=== PATIENT | female | born 1975 | race Caucasian/White ===

== ENCOUNTER → 2016-05-15 | Outpatient (CLI) | payer OTHER ==
--- NOTE | 2016-05-15 09:01 | REP ---
CT abdomen and pelvis without contrast 05/15/2016 Indication: Flank pain, history of urinary calculi Comparison: CT abdomen /pelvis 09/01/2013 performed without contrast. Findings: Small amount of atelectatic changes are present within the right middle lobe. Liver, spleen, pancreas, gallbladder, adrenal glands are normal. Kidneys are without hydronephrosis or obstructing ureteral calculi bilaterally. There are no visualized Nephro calculi bilaterally. The stomach and small bowel are within normal limits. Terminal ileum and appendix are normal, aorta is of normal course and caliber. There are no pathologically enlarged retroperitoneal nodes. Bilateral tubal occlusion wires are visualized. There is mild asymmetry in size of the ovaries, right greater than left, and small right ovarian follicles are suggested. There is moderate diffuse retained stool within the colon. There is no free air or ascites. There is an umbilical hernia 2 cm transverse dimension containing omental fat only. Impression No hydronephrosis or obstructing ureteral calculi bilaterally. No visualized Nephro calculi Unremarkable appendix 2 cm umbilical hernia containing omental fat only Mild asymmetry in size of the ovaries right greater than left. Right ovarian follicles are suggested. If there are symptoms referable to the right adnexal region, pelvic ultrasound may be warranted. Signed by Prerna Hubbard MD 05/15/2016 08:53 A
== END | disposition home or self-care (01) ==
LOC: M RAD 07:25
PROVIDERS: ATTEND Nurse Practitioner Women's Health
DX: R10.9 Unspecified abdominal pain (principal); Z87.442 Personal history of urinary calculi; K42.9 Umbilical hernia without obstruction or gangrene

== ENCOUNTER → 2016-06-29 | Outpatient (CLI) | payer OTHER ==
[~2016-06-29] MED LIST: CELE40TA PO; LIPI20TA PO; LISI10TA4 PO
[2016-06-29 17:36] LABS: ANION GAP 8 MEQ/L (8-16); BLOOD UREA NITROGEN 14 MG/DL (7-18); CALCIUM LEVEL 8.9 MG/DL (8.5-10.1); CARBON DIOXIDE LEVEL 26 MEQ/L (21-32); CHLORIDE LEVEL 106 MEQ/L (98-107); GLOMERULAR FILTRATION RATE > 60.0 (>60); GLUCOSE, FASTING 113 MG/DL (70-105); POTASSIUM SERUM 4.3 MEQ/L (3.5-5.1); SODIUM LEVEL 140 MEQ/L (136-145)
[2016-06-29 17:54] LABS: MEAN CORPUSCULAR HEMOGLOBIN 29.2 pg (27.0-33.0); MEAN CORPUSCULAR HGB CONC 33.2 g/dl (32.0-36.5); MEAN CORPUSCULAR VOLUME 87.8 fl (80.0-96.0); RED CELL DISTRIBUTION WIDTH 13.5 % (11.5-14.5); WHITE BLOOD COUNT 9.4 K/mm3 (4.0-10.0)
[2016-06-29 18:10] LABS: CALCIUM OXALATE CRYSTALS MODERATE
== END ==
LOC: M SMT 13:15
PROVIDERS: ATTEND Specialist
DX: Z01.812 Encounter for preprocedural laboratory examination (principal); R32 Unspecified urinary incontinence

== ENCOUNTER → 2016-07-04 | Outpatient (CLI) | payer OTHER ==
[~2016-07-04] MED LIST changes: +BACT800T5 PO; +OXYC1TAB23 PO
--- NOTE | 2016-07-04 17:05 | ECGEPIP ---
Stationary ECG Study [facility] Test Date: 2016-07-04 Pat Name: JULY PATI Department: Room: - Gender: F Motorboat Mechanic Inboard/Outboard: SAM : 1975 Requested By: Marino Jnag Order Number: [id number] Reading MD: Maribel Chase Measurements Intervals [place] Rate: 79 P: -8 CO: 180 QRS: 6 QRSD: 101 T: 26 QT: 362 QTc: 415 Interpretive Statements SINUS RHYTHM WITH SINUS ARRHYTHMIA WNL NO PRIOR Electronically Signed On 07-04-2016 17:05:34 EST by Maribel Chase
== END ==
LOC: M EKG 11:11
PROVIDERS: ATTEND Anesthesiology
DX: Z01.818 Encounter for other preprocedural examination (principal); I10 Essential (primary) hypertension; I49.9 Cardiac arrhythmia, unspecified

== ENCOUNTER 2016-07-05 09:28 | Day surgery (SDC) | payer OTHER ==
[~2016-07-05] VITALS: Ht 162.6 cm; Wt 88.5 kg
[~2016-07-05 09:28] MED LIST changes: -BACT800T5 PO; -OXYC1TAB23 PO
[2016-07-05] MEDS ORDERED: LR 1,000 ML IV SCH ×2 (10:00→14:00)
[2016-07-05] MEDS ORDERED: ceFAZolin 2 GM/D5W 50 ML IV BAG (J0690) As Ordered ONE (10:04)
[2016-07-05] MEDS ORDERED: MIDAZOLAM INJ 2 MG/2 ML VIAL (J2250) As Ordered ONE ×2 (10:05→12:33)
[2016-07-05] MEDS ORDERED: ONDANSETRON 4MG/2ML VIAL (J2405) As Ordered ONE (10:05)
[2016-07-05] MEDS ORDERED: dexameTHASONE 4 MG/ML 1ML VIAL (J1100) As Ordered ONE (10:05)
[2016-07-05] MEDS ORDERED: PROPOFOL 200 MG/20 ML VIAL As Ordered ONE ×2 (10:05→13:00)
[2016-07-05] MEDS ORDERED: ROCURONIUM BROMIDE 50 MG/5 ML VIAL As Ordered ONE (10:05)
[2016-07-05] MEDS ORDERED: LIDOCAINE 2% INJ 100 MG/5 ML SDV (FOR ANES.) As Ordered ONE (10:05)
[2016-07-05] MEDS ORDERED: KETOROLAC 60 MG/2 ML VIAL (J1885) As Ordered ONE (10:05)
[2016-07-05] MEDS ORDERED: fentaNYL 250 MCG/5 ML INJECTION (J3010) As Ordered ONE (10:05)
[2016-07-05] MEDS ORDERED: GLYCOPYRROLATE INJ 0.2 MG/ML 2 ML VIAL As Ordered ONE (10:05)
[2016-07-05] MEDS ORDERED: BUPIVACAINE/EPIN 0.25% 30 ML VIAL As Ordered ONE (11:49)
[2016-07-05] MEDS ORDERED: METHYLENE BLUE 0.5% (5MG/ML) 10 ML AMP (PROVAYBLUE)(Q9968 PER 1MG) As Ordered ONE (11:49)
[2016-07-05] MEDS ORDERED: BACITRACIN PWD 50,000 UNITS VIAL As Ordered ONE (11:51)
[2016-07-05] MEDS ORDERED: CHLOROPROCAINE PRES. FREE 3% INJ 20 ML VIAL (J2400) As Ordered ONE (12:10)
[2016-07-05] MEDS ORDERED: PHENYLephrine HCL 500 MCG/5 ML (100MCG/ML) SYRINGE (J2370) As Ordered ONE (12:53)
[2016-07-05] MEDS ORDERED: OXYC1TAB23 PO (13:24)
[2016-07-05] MEDS ORDERED: BACT800T5 PO (13:29)
[2016-07-05] MEDS ORDERED: METOCLOPRAMIDE INJ 10MG/2ML VIAL (J2765) IV PRN (14:00)
[2016-07-05] MEDS ORDERED: PERCOCET 5MG/325MG TAB PO PRN (14:00)
[2016-07-05] MEDS ORDERED: fentaNYL 100 MCG/2 ML INJECTION (J3010) IV PRN (14:00)
[2016-07-05] MEDS ORDERED: ONDANSETRON 4MG/2ML VIAL (J2405) IV PRN (14:00)
[2016-07-05 15:00] VITALS: BP 125/74
--- NOTE | 2016-07-06 10:14 | RO ---
DATE OF PROCEDURE: 07/05/2016 PREOPERATIVE DIAGNOSIS: Mixed urinary incontinence. POSTOPERATIVE DIAGNOSIS: Mixed urinary incontinence. PROCEDURE: Mid urethral sling with the use of a tension-free vaginal tape-obturator (TVTO) made by [employer] and cystoscopy. SURGEON: Dr. Anusha Fernandez CONTAINERS SALES REPRESENTATIVE: ANESTHESIA: Spinal with IV sedation. MEDICATIONS: Ancef 2 grams preoperatively. DRAIN: 18-Dominican Olsen catheter. COMPLICATIONS: None. ESTIMATED BLOOD LOSS: 75 mL. INDICATIONS FOR PROCEDURE: The patient is a 40-year-old female with a history of mixed urinary incontinence bothered mostly by the stress component. She did leak urine with walking, but mostly leaked with coughing, sneezing, or jumping ropes. She needed to wear pads whenever she was working out. She had done Kegel exercises for years, but still had the issue. After discussing all different options, alternatives, risks, and benefits, including conservative therapy with physical therapy, the patient decided to proceed with surgical management. The risks discussed included, but was not limited to, the risks of general anesthesia, reactions to medication, bleeding, infection, urethral injury, postoperative urinary retention, continued incontinence, postoperative overactive bladder, and extrusion and/or erosion of the mesh material. PROCEDURE: The patient was brought into the operating room. Sequential compression devices and thromboembolic deterrent (ZOILA) stockings were in place. Preoperative antibiotics had been given. The spinal anesthesia was given as was IV sedation. The patient was then placed in the lithotomy position and careful attention was paid that her pressure points were well padded and protected. Next, she was prepped and draped in the usual fashion. An 18-Dominican Olsen catheter was placed and left to gravity drainage. Next, a 1 cm incision was made 1 cm underneath the urethral meatus and Metzenbaum scissors were utilized going up towards the obturator region. Next, the TVTO metal passing device was placed in this space and the TVTO was passed over this out through the obturator region, first on the right hand side and then on the left. Vaginal mucosa was palpated and there was no evidence of sling material. A cystoscopy was performed and both ureteral orifices were seen with excellent efflux of indigo carmine. There was no evidence of sling material in the bladder. What was of interest was a string of what originally appeared to be metallic, but later on was shown just to be bubbles, most likely from lidocaine jelly that was placed on the Olsen catheter. There were no other stones, erythematous patches, lesions or other significant abnormalities within the bladder. At this point, the Olsen catheter was replaced and left to gravity drainage. A 30-Dominican Lavern dilator was placed between the urethra and the mesh material and the transvaginal tape was adjusted to the right tension. The outer plastic portion was removed and the mesh material was cut to the level of skin. Copious antibiotic irrigation was utilized. The vaginal mucosa was closed using an interrupted #3-0 chromic suture. Since the patient had a spinal in place, vaginal packing was placed and the catheter will be left in place until the spinal wears off and then we will remove both the packing and plan a voiding trial.
== END 2016-07-05 15:22 ==
LOC: M SDC 09:28
PROVIDERS: ATTEND Specialist
DX: N39.46 Mixed incontinence (principal); I10 Essential (primary) hypertension; E78.00 Pure hypercholesterolemia, unspecified; J32.9 Chronic sinusitis, unspecified; Z87.891 Personal history of nicotine dependence; Z79.899 Other long term (current) drug therapy
CPT/HCPCS: 57288; C1771; J0690; J1100; J1885; J2250; J2370; J2400; J2405; J3010; Q9968

== ENCOUNTER 2016-11-06 05:49 | Inpatient (IN) | payer OTHER ==
[~2016-11-06] VITALS: Ht 162.6 cm; Wt 88.0 kg
[2016-11-06] VITALS (7 sets, daily range): BP systolic 125–141; BP diastolic 73–85
[~2016-11-06 05:49] MED LIST changes: +BACT800T5 PO; +OXYC1TAB23 PO
[2016-11-06] MEDS ORDERED: cefoTEtan DISODIUM 2 GM in D5W MINI-BAG PLUS 100 ML IV ONE (06:00)
[2016-11-06] MEDS ORDERED: LR 1,000 ML IV ONE (06:15)
[2016-11-06] MEDS ORDERED: LR 1,000 ML IV SCH ×3 (06:15→11:00)
[2016-11-06 06:41] LABS: MEAN CORPUSCULAR HEMOGLOBIN 29.3 pg (27.0-33.0); MEAN CORPUSCULAR HGB CONC 33.7 g/dl (32.0-36.5); RED CELL DISTRIBUTION WIDTH 13.6 % (11.5-14.5); WHITE BLOOD COUNT 8.4 K/mm3 (4.0-10.0)
[2016-11-06 06:48] LABS: CONTROL LINE HCG INT CTR LINE PRESENT
[2016-11-06] MEDS ORDERED: BUPIVACAINE HCL 0.5% 30 ML VIAL As Ordered ONE (07:14)
[2016-11-06] MEDS ORDERED: PROPOFOL 200 MG/20 ML VIAL As Ordered ONE ×2 (07:21→10:02)
[2016-11-06] MEDS ORDERED: LIDOCAINE 2% INJ 100 MG/5 ML SDV (FOR ANES.) As Ordered ONE (07:21)
[2016-11-06] MEDS ORDERED: fentaNYL 250 MCG/5 ML INJECTION (J3010) As Ordered ONE (07:21)
[2016-11-06] MEDS ORDERED: ROCURONIUM BROMIDE 50 MG/5 ML VIAL/SYRINGE As Ordered ONE ×2 (07:21→09:15)
[2016-11-06] MEDS ORDERED: MIDAZOLAM INJ 2 MG/2 ML VIAL (J2250) As Ordered ONE (07:22)
[2016-11-06] MEDS ORDERED: GLYCOPYRROLATE INJ 0.2 MG/ML 2 ML VIAL As Ordered ONE ×2 (08:37→11:43)
[2016-11-06] MEDS ORDERED: KETOROLAC 60 MG/2 ML VIAL (J1885) As Ordered ONE ×2 (09:00→11:43)
[2016-11-06] MEDS ORDERED: ONDANSETRON 4MG/2ML VIAL (J2405) As Ordered ONE ×2 (09:00→11:43)
[2016-11-06] MEDS ORDERED: dexameTHASONE 4 MG/ML 1ML VIAL (J1100) As Ordered ONE ×2 (09:00→11:43)
[2016-11-06] MEDS ORDERED: NEOSTIGMINE 1MG/ML 5 ML SYRINGE (J2710) As Ordered ONE ×2 (09:00→11:43)
[2016-11-06] MEDS ORDERED: HYDROmorphone HCL 2 MG/ML 1ML VIAL (J1170) As Ordered ONE ×2 (09:04→11:44)
[2016-11-06] MEDS ORDERED: ePHEDrine SULFATE 25 MG/5 ML(5MG/ML) SYRINGE As Ordered ONE (09:57)
[2016-11-06] MEDS ORDERED: PROMETHAZINE INJ 25 MG/ML VIAL (J2550) IV PRN (10:30)
[2016-11-06] MEDS ORDERED: PERCOCET 5MG/325MG TAB PO PRN (10:30)
[2016-11-06] MEDS: PERCOCET 5MG/325MG TAB PO PRN ×2 (11:00→22:35)
[2016-11-06] MEDS ORDERED: ONDANSETRON 4MG/2ML VIAL (J2405) IV PRN (11:00)
[2016-11-06] MEDS ORDERED: fentaNYL 100 MCG/2 ML INJECTION (J3010) IV PRN (11:00)
[2016-11-06] MEDS ORDERED: METOCLOPRAMIDE INJ 10MG/2ML VIAL (J2765) As Ordered ONE (11:43)
[2016-11-06] MEDS ORDERED: PHENYLephrine HCL 500 MCG/5 ML (100MCG/ML) SYRINGE (J2370) As Ordered ONE (11:53)
[2016-11-06] MEDS: KETOROLAC 30 MG/ML VIAL (J1885) IV SCH ×2 (15:16→20:28)
[2016-11-06] MEDS ORDERED: ACETAMINOPHEN TAB 650MG DOSE (2X325MG) PO ONE (18:45)
[2016-11-06] MEDS: DOCUSATE SODIUM 100 MG CAP PO SCH (20:28)
--- NOTE | 2016-11-06 21:37 | IPNPDOC ---
Text Note Date of Service The patient was seen on 11/06/16. NOTE NOS Discussed results with her, uncompliacted TLH, bilat slapingectomy. Spoke with pt, very aware NAD, denies any pain. Slight PANIAGUA only. Took some tylenol earlier for this, declines percocet. Eating, walking, using the IS. VSSAF UO adequate, ~200/hr Inc's CDI SCD's on Wants to leave in the AM, feeling very well, will remove her Olsen at 0300 with a DTV by 0700. CBC at 0600. Will reeval in the AM. Sessions MD VICENTE,Luna, I+O VSLuna, I+O Laboratory Tests 11/06/16 06:17 Red Blood Count 4.50, Mean Corpuscular Volume 87.0, Mean Corpuscular Hemoglobin 29.3, Mean Corpuscular Hemoglobin Concent 33.7, Red Cell Distribution Width 13.6 Vital Signs Date Time Temp Pulse Resp B/P (MAP) Pulse Ox O2 Delivery O2 Flow Rate FiO2 11/06/16 20:00 99.3 109 18 135/85 (102) 96 Nasal Cannula 2.0 SESSIONS,GERALDO Marie MD Nov 06, 2016 21:37
[2016-11-07] VITALS: BP 127/70
[2016-11-07] MEDS: KETOROLAC 30 MG/ML VIAL (J1885) IV SCH ×2 (02:02→08:29)
[2016-11-07 04:00] VITALS: BP 126/73
--- NOTE | 2016-11-07 06:58 | IPNPDOC ---
Text Note Date of Service The patient was seen on 11/07/16. NOTE POD1 s/p uncomplicated TLH, bilat salpingectomy. A&O, NAD, denies any pain. PANIAGUA improved. Eating, walking, using the IS. No CP/ LP/SOB. No VB. VSSAF, although at MN had a T 100.6, rpt 1 hr later and since nl UO adequate, Olsen out since 0300, no void yet CTAB RRR BS pos, abd soft, Inc's CDI Ext no CCE, SCD's on Feeling very well, CBC this AM pending. Due to MN slight fever, will watch until tomorrow. Sessions VSLuna, I+O VSLuna I+O Vital Signs Date Time Temp Pulse Resp B/P (MAP) Pulse Ox O2 Delivery O2 Flow Rate FiO2 11/07/16 04:00 98.0 100 18 126/73 (90) 93 Room Air I&O- Last 24 Hours up to 6 AM 11/07/16 06:00 Intake Total 3190 ml Output Total 2950 ml Balance 240 ml SESSIONS,GERALDO Marie MD Nov 07, 2016 06:58
[2016-11-07 07:18] LABS: BASO % 0.2 % (0.0-1.0); EOS # 0.1 K/mm3 (0.0-0.50); EOS % 0.6 % (0.0-3.0); LARGE UNSTAINED CELL # 0.3 K/mm3 (0.0-0.4); LYMPH # 2.5 K/mm3 (1.5-4.5); LYMPH % 13.7 % (24.0-44.0); MEAN CORPUSCULAR HEMOGLOBIN 29.1 pg (27.0-33.0); MEAN CORPUSCULAR HGB CONC 33.3 g/dl (32.0-36.5); MEAN CORPUSCULAR VOLUME 87.4 fl (80.0-96.0); MONO # 0.6 K/mm3 (0.0-0.8); NEUTROPHILS # 12.8 K/mm3 (1.8-7.7); NEUTROPHILS % 79.5 % (36.0-66.0); PLATELET COUNT, AUTOMATED 308 k/mm3 (150-450); RED CELL DISTRIBUTION WIDTH 13.8 % (11.5-14.5); WHITE BLOOD COUNT 16.1 K/mm3 (4.0-10.0)
[2016-11-07 08:00] VITALS: BP 128/78
[2016-11-07] MEDS: DOCUSATE SODIUM 100 MG CAP PO SCH ×2 (08:28→21:46)
[2016-11-07 12:00] VITALS: BP 130/70
[2016-11-07] MEDS: PERCOCET 5MG/325MG TAB PO PRN ×2 (12:48→21:49)
[2016-11-07 16:00] VITALS: BP 137/75
[2016-11-07] MEDS ORDERED: SLF 3 ML SYR IV PRN (16:15)
[2016-11-07] MEDS: IBUPROFEN 800 MG TAB PO SCH (17:03)
[2016-11-07 20:00] VITALS: BP 142/81
[2016-11-07] MEDS: SLF 3 ML SYR IV SCH (21:50)
[2016-11-08] VITALS: BP 146/66
[2016-11-08] MEDS: IBUPROFEN 800 MG TAB PO SCH ×2 (01:04→08:36)
[2016-11-08 04:00] VITALS: BP 129/88
[2016-11-08] MEDS: SLF 3 ML SYR IV SCH (06:00)
--- NOTE | 2016-11-08 07:50 | DS.PDOC ---
Discharge Summary General Date of Admission Nov 06, 2016 at 05:49 Date of Discharge [id number] Discharge Summary PROCEDURES PERFORMED DURING STAY: Total Laparoscopic Hysterectomy, bilateral salpingectomy ADMITTING DIAGNOSIS: 1. Pelvic pain, dyspareunia, abnormal uterine bleeding, possible adenomyosis DISCHARGE DIAGNOSES: 1. [facility]: Admitted for [facility] bilat salp, uncomplicated, see operative dictation. Her postop course was uncomplicated other than a single temp of 100.6 at midnight on the evening of her surgery. This was repeated 1 hour later and it was normal thereafter. Because of this, was kept an extra day to be sure was not developing an infection. DISCHARGE MEDICATIONS: Motrin, Percocet, Colace Physical exam on day of discharge: see progress note LABORATORY DATA: Please see below. ACTIVITY: No lifting >20 lbs for 4-6 weeks. Nothing in vagina for 12 weeks due to the use of electrocautery. No bathing for 1 month. DIET: regular DISPOSITION:stable TIME SPENT ON DISCHARGE: Greater than 15 minutes. Sessions Vital Signs/I&Os Vital Signs Date Time Temp Pulse Resp B/P (MAP) Pulse Ox O2 Delivery O2 Flow Rate FiO2 11/08/16 04:00 99.4 72 20 129/88 (102) 93 Room Air 11/07/16 04:00 I&O- Last 24 Hours up to 6 AM 11/08/16 05:59 Intake Total 1400 ml Output Total 1050 ml Balance 350 ml Discharge Medications Scheduled Atorvastatin Calcium (Lipitor) 20 Mg Tab, 20 MG PO QHS, (Reported) Citalopram Hydrobromide (Celexa) 40 Mg Tab, 20 MG PO QHS, (Reported) Lisinopril (Lisinopril) 10 Mg Tab, 10 MG PO QHS, (Reported) Allergies Coded Allergies: No Known Allergies (Unverified , 11/06/16) SESSIONS,GERALDO Marie MD Nov 08, 2016 07:49
--- NOTE | 2016-11-08 07:53 | IPNPDOC ---
Text Note Date of Service The patient was seen on 11/08/16. NOTE POD2 prog note States feeling well, no complaints. No VB. Pain controlled. Voiding, ambulatory, no N/V/LP/CP/SOB VSSAF CTAB RRR Ext no CCE Inc's CDI CBC yest AM appropr a/p: Doing well. d/c this morning. After explanation last night by evening RN , pt OK and understood there was no indication for abx for a single T >100.4 on the night of surgery. Has remained afebrile since. Very normal to have an elevated WBC count the day after surgery (reactive inflammation). Sessions VS,Luna, I+O VSLuna I+O Vital Signs Date Time Temp Pulse Resp B/P (MAP) Pulse Ox O2 Delivery O2 Flow Rate FiO2 11/08/16 04:00 99.4 72 20 129/88 (102) 93 Room Air 11/07/16 04:00 I&O- Last 24 Hours up to 6 AM 11/08/16 06:00 Intake Total 1440 ml Output Total 1450 ml Balance -10 ml GERALDO SALAZAR MD Nov 08, 2016 07:53
[2016-11-08] MEDS ORDERED: OXYC1TAB23 PO ×2 (08:22)
[2016-11-08] MEDS ORDERED: COLA100C5 PO (08:29)
[2016-11-08] MEDS ORDERED: IBUP-1022 PO (08:29)
[2016-11-08] MEDS: DOCUSATE SODIUM 100 MG CAP PO SCH (08:35)
--- NOTE | 2016-11-08 09:32 | RO ---
DATE OF PROCEDURE: 11/06/2016 PREOPERATIVE DIAGNOSIS: Abnormal uterus on ultrasound, abnormal uterine bleeding, pelvic pain, dyspareunia. POSTOPERATIVE DIAGNOSIS: Abnormal uterus on ultrasound, abnormal uterine bleeding, pelvic pain, dyspareunia. PROCEDURE: Total laparoscopic hysterectomy, bilateral salpingectomy. SURGEON: Joaquin Mccall MD INTERMEDIATE FRAME TENDER: Sharif Degroot MD ANESTHESIA: General endotracheal. ESTIMATED BLOOD LOSS: 50 mL. DRAINS: 500 mL of urine in the Olsen catheter. FLUIDS REPLACED: 1600 mL of Lactated Ringer's. PREOPERATIVE ANTIBIOTICS: The patient received 2 grams of Ancef IV prior to start of the incision. SPECIMENS REMOVED: Cervix, uterus, and fallopian tubes, all attached. INDICATIONS: Patient is a 41-year-old female with significant diagnoses as per the preoperative diagnosis above. Strongly desires hysterectomy to improve her quality of life. Informed consent was obtained approximately two weeks prior to the surgery and on the morning of the surgery there were no changes and the patient desired to proceed. DESCRIPTION OF PROCEDURE: Patient was taken to the operating room with an IV in place, placed in dorsal lithotomy position, after general endotracheal anesthesia was obtained. A preoperative exam under anesthesia was then performed by myself and my cleaner assistant, and the patient was prepped and draped in a normal sterile fashion. Of note, I positioned her legs. While the laparoscopic equipment was being assembled by my cleaner assistant, I placed a speculum in the vagina and a tenaculum on the anterior lip of the cervix. I placed a figure-of-8 suture on the anterior lip of the cervix and then easily placed the VCare uterine manipulator into the uterine cavity, at which point the stay suture ripped free. I then replaced the stay suture with another and this also ripped free. I then cauterized the area to ensure that we did not have an inordinate amount of blood loss that was unknown during the surgery and attempts to place a stay suture were abandoned. I insufflated the VCare uterine manipulator, advanced the mechanism to keep it in place and removed the speculum. My gloves were then changed then a blue towel was wrapped around the uterine manipulator. I turned my attention to the lower abdomen. The patient was dropped to waist level, flattened out parallel to the floor, and the infraumbilical port site was injected with approximately 5 mL of 0.25% Marcaine without epinephrine. A small 5 mm horizontal incision was performed and the trocar was placed under direct visualization to the abdominal cavity. This was done without difficulty and with low flow insufflation of carbon dioxide, we confirmed intra-abdominal placement and then changed to high flow. We then placed her in Trendelenburg, removed the intestines out of the pelvis, and did a thorough examination of the lower and upper abdomen. All seemed normal other than a slightly enlarged uterus with significant erythematous injection on the right posterior cul-de-sac. Both ovaries and fallopian tubes were normal in appearance. We then placed two lower lateral trocars in the exact same manner, however this time it was done under direct visualization using the camera in the infraumbilical site. These were just inside and superior to the ASIS. My cleaner assistant grasped the left fallopian tube, which was elevated, and I removed it with the LigaSure down to the utero-ovarian ligament and then marched down the utero-ovarian ligament to about the level of the cardinal ligament. This was done without difficulty and no significant blood loss. We then repeated the exact same contralateral procedure in the exact same manner. Of note, prior to starting the use of the LigaSure, both ureters were identified bilaterally. Continuous cephalad pressure was maintained with the Gigawattare uterine manipulator during the entirety of taking down the utero-ovarian ligament and at this point a bladder flap was created with the Harmonic scalpel without difficulty. Then using the Harmonic once more, and a moderate amount of dissection, we were able to locate the VCare colpotomy ring at which point we transected the cervix from the vagina circumferentially. I glove with a few Ray-Kristina's and moistened with Surgilube on the outside was needed to maintain our pneumoperitoneum and this was placed easily by the surgical instrument mechanic. I then went below and raised her legs to high lithotomy and easily removed the cervix, uterus and fallopian tubes vaginally. With assistance from Dr. Degroot and a speculum, I then closed the vaginal cuff from the patient's left to right with a running suture #0 Vicryl in a locked fashion incorporating in that fashion. I was very confident with the integrity of the closure and hemostasis was noted from the vagina. Dr. Degroot then changed his outer gloves, went cephalad replaced the camera and CO2 insufflation tubing, put her back into Trendelenburg and evaluated the lower pelvis. Hemostasis was noted and there was no blood pooled whatsoever in the lower abdomen or pelvis. Photo documentation performed. CO2 insufflation was released and all trocars were removed under direct visualization. The trocar sites were all closed with #4-0 Monocryl and DERMABOND was placed over the incisions as well. The patient was awakened from general anesthesia without difficulty and transferred to the postanesthesia care unit (PACU) in stable condition after a count was correct including sponge, needle and instruments.
== END 2016-11-08 09:00 | disposition home or self-care (01) | DRG 743 ==
LOC: M OR 05:49 → M PED 11:47
PROVIDERS: ADMIT Obstetrics & Gynecology; ATTEND Obstetrics & Gynecology
PROC: 0UT74ZZ Resection of Bilateral Fallopian Tubes, Percutaneous Endoscopic Approach (ICD-10-PCS; 2016-11-06)
PROC: 0UTC4ZZ Resection of Cervix, Percutaneous Endoscopic Approach (ICD-10-PCS; 2016-11-06)
PROC: 0UT94ZZ Resection of Uterus, Percutaneous Endoscopic Approach (ICD-10-PCS; principal; 2016-11-06 07:30)
DX: N93.9 Abnormal uterine and vaginal bleeding, unspecified (principal); N94.10 Unspecified dyspareunia; R50.82 Postprocedural fever; N80.0 Endometriosis of uterus; N94.6 Dysmenorrhea, unspecified; I10 Essential (primary) hypertension; E78.5 Hyperlipidemia, unspecified; F32.9 Major depressive disorder, single episode, unspecified; Z79.899 Other long term (current) drug therapy

== ENCOUNTER → 2017-01-14 | Outpatient (CLI) | payer OTHER ==
[~2017-01-14] MED LIST changes: +COLA100C5 PO; +IBUP-1022 PO
--- NOTE | 2017-01-14 15:29 | REPMRS ---
Patient History The patient states she had a clinical breast exam in August 2016. No known family history of cancer. Digital Mammo Screening Bilat: January 14, 2017 - Exam #: [id number] Bilateral CC and MLO view(s) were taken. Technologist: Mehnaz Browne, Technologist No prior studies available for comparison. FINDINGS: There are scattered fibroglandular densities. There is no evidence of cancer on this mammogram. ASSESSMENT: BI-RADS/ACR category 2 mammogram. Benign finding(s). Recommendation Routine screening mammogram of both breasts in 1 year (for women over age 40). This mammogram was interpreted with the aid of an FDA-approved computer-aided dectection system. Electronically Signed By: Joaquin Simms MD 01/14/17 [id number]
== END ==
LOC: M RAD 13:49
PROVIDERS: ATTEND Physician Assistant Medical
DX: Z12.31 Encounter for screening mammogram for malignant neoplasm of breast (principal)

== ENCOUNTER → 2017-10-17 | Outpatient (CLI) | payer OTHER | LOC: M LRY 15:25 | DX: M25.531 Pain in right wrist (principal) | CPT/HCPCS: 73110; G0463 ==